=== PATIENT | male | born 1980 | race Caucasian/White ===

== ENCOUNTER 2020-09-27 10:20 | Emergency (ER) | payer MEDICAID, OTHER ==
[~2020-09-27] VITALS: Ht 180.3 cm; Wt 181.8 kg
[2020-09-27] MEDS ORDERED: LISI10TA22 PO (10:37)
[2020-09-27] MEDS ORDERED: FURO40TA2 PO (10:37)
--- NOTE | 2020-09-27 10:58 | REP ---
INDICATION: pain in knee COMPARISON: None. TECHNIQUE: AP, lateral, bilateral oblique views of the left knee. FINDINGS: Early advanced tricompartmental osteoarthritic degenerative changes are appreciated. Findings include subchondral sclerosis, joint space narrowing, cortical irregularities with osteophytosis and chondrocalcinosis. No acute fracture or dislocation. No obvious effusion. IMPRESSION: Early advanced tricompartmental osteoarthritic degenerative changes. <Electronically signed by Guille Ferris > 09/27/20 1058
[2020-09-27 13:00] VITALS: BP 170/80
== END 2020-09-27 14:08 | disposition home or self-care (01) ==
LOC: M ED 10:20
DX: S83.92XA Sprain of unspecified site of left knee, initial encounter (principal); X50.9XXA Other and unspecified overexertion or strenuous movements or postures, initial encounter; Y92.89 Other specified places as the place of occurrence of the external cause; Y93.89 Activity, other specified; Y99.8 Other external cause status; I10 Essential (primary) hypertension; E66.01 Morbid (severe) obesity due to excess calories; E78.9 Disorder of lipoprotein metabolism, unspecified; Z79.899 Other long term (current) drug therapy; Z91.030 Bee allergy status; Z88.8 Allergy status to other drugs, medicaments and biological substances

== ENCOUNTER 2023-12-10 15:48 | Emergency (ER) | payer MEDICAID ==
[~2023-12-10] VITALS: Ht 180.3 cm; Wt 184.1 kg
[~2023-12-10 15:48] MED LIST: FURO40TA2 PO; LISI10TA22 PO
[2023-12-10] MEDS ORDERED: XARE20TA (16:16)
[2023-12-10] MEDS ORDERED: FURO20TA2 (16:16)
[2023-12-10] MEDS ORDERED: FAMO20TA5 (18:43)
[2023-12-10] MEDS ORDERED: ACET-683 (18:43)
[2023-12-10] MEDS: ACETAMINOPHEN TAB 650MG DOSE (2X325MG) PO ONE (19:32)
[2023-12-10] MEDS: methocarbamoL 750 MG TAB PO ONE (19:32)
[2023-12-10] MEDS: LIDOCAINE 5% (LIDODERM) PATCH TD ONE (19:32)
[2023-12-10 20:06] VITALS: BP 158/96; TEMP 97.8; O2SAT 99
== END 2023-12-10 20:27 | disposition home or self-care (01) ==
LOC: M ED 15:48 → EDBD 15:48 → M ED 20:27
DX: M54.50 Low back pain, unspecified (principal); I10 Essential (primary) hypertension; E66.9 Obesity, unspecified; Z86.79 Personal history of other diseases of the circulatory system; Z79.811 Long term (current) use of aromatase inhibitors; Z79.1 Long term (current) use of non-steroidal anti-inflammatories (NSAID); Z79.899 Other long term (current) drug therapy

== ENCOUNTER 2023-12-12 15:37 | Emergency (ER) | payer MEDICAID ==
[~2023-12-12] VITALS: Ht 180.3 cm; Wt 181.8 kg
[~2023-12-12 15:37] MED LIST changes: +ACET-683; +FAMO20TA5; +FURO20TA2; +XARE20TA
[2023-12-12] MEDS: ACETAMINOPHEN TAB 650MG DOSE (2X325MG) PO ONE (21:15)
[2023-12-12] MEDS: traMADol 50 MG TAB PO ONE (21:15)
[2023-12-12] MEDS: LIDOCAINE 5% (LIDODERM) PATCH TD ONE (21:16)
[2023-12-12 21:22] VITALS: BP 141/76; TEMP 97.9; O2SAT 98
== END 2023-12-12 21:25 | disposition home or self-care (01) ==
LOC: EDBD 15:37 → M ED 15:37
DX: M54.50 Low back pain, unspecified (principal); Z88.8 Allergy status to other drugs, medicaments and biological substances; Z91.030 Bee allergy status; Z79.1 Long term (current) use of non-steroidal anti-inflammatories (NSAID); Z79.899 Other long term (current) drug therapy